=== PATIENT | female | born 1995 | race Caucasian/White ===

== ENCOUNTER 2017-08-12 18:46 | Emergency (ER) | payer OTHER ==
[~2017-08-12 18:46] MED LIST: ISOVUE-370 76%-LOCM 1 ML ONE
[2017-08-12 19:26] LABS: Bilirubin Negative (Negative); Blood, Urine Negative (Negative); Clarity CLEAR (Clear); Glucose, Urine (Dipstick) Negative (Negative); Leukocyte Negative (Negative); Nitrite Negative (Negative); Protein, Urine (Dipstick) Negative (Neg-Trace); Urobilinogen 0.2 mg/dL (0.2-1.0); pH, Urine 6.5 (5.0-9.0)
[2017-08-12 19:31] LABS: Pregnancy Test - Urine (BHCG) Negative (Negative); Pregu Control Background? CLEAR/WHITE (CLR/WHITE); Pregu Control Bar Appear? YES (CONTROL BAR)
[2017-08-12 19:35] LABS: #Basophils 0.1 thou/uL (0.0-0.2); #Eosinphils 0.2 thou/uL (0.0-0.7); #Lymphocytes 4.1 thou/uL (1.20-3.40); #Monocytes 0.7 thou/uL (0.11-0.59); #Neutrophils 8.5 thou/uL (1.40-6.50); %Basophils 0.5 % (0.0-1.0); %Eosinophils 1.7 % (0.0-10.0); %Lymphocytes 29.9 % (21.0-51.0); %Monocytes 5.1 % (0.0-10.0); %Neutrophils 62.9 % (42.0-75.0); Hemoglobin 14.9 g/dL (12.0-16.0); Mean Corpuscular HGB CONC 33.8 g/dL (32.0-36.0); Mean Corpuscular Hemoglobin 28.8 pg (27.0-31.0); Mean Corpuscular Volume 85.4 fl (81.0-99.0); Mean Platelet Volume 7.2 fL (7.4-10.4); Platelet Count 341 thou/uL (130-400); RBC Distribution Width 12.6 % (11.5-14.5); Red Blood Cell (RBC) Count 5.18 mill/uL (4.20-5.40); White Blood Cell (WBC) Count 13.6 thou/uL (4.8-10.8)
[2017-08-12] MEDS ORDERED: Ketorolac Tromethamine 30 MG/ML VIAL ONE (19:38)
[2017-08-12] MEDS ORDERED: Morphine 4 MG/ML VIAL ONE (19:38)
[2017-08-12] MEDS ORDERED: Ondansetron ODT 4 MG TAB ONE (19:40)
[2017-08-12 19:57] LABS: ALT (SGPT) 20 U/L (8-55); AST (SGOT) 16 U/L (5-34); Albumin 4.8 g/dL (3.5-5.0); Alkaline Phosphatase 93 U/L (40-150); Anion Gap 15 mmol/L (10-20); BUN (Urea Nitrogen) 13 mg/dL (7.0-18.7); Bilirubin, Total 0.3 mg/dL (0.2-1.2); Calc. Creatinine Clearance 0 mL/min (70-130); Calcium 10.4 mg/dL (7.8-10.44); Carbon Dioxide 23 mmol/L (22-29); Chloride 102 mmol/L (98-107); Estimated GFR-MDRD Greater than 90; Globulin 3.9 g/dL (2.4-3.5); Glucose 94 mg/dL (70-105); Potassium 3.9 mmol/L (3.5-5.1); Protein, Total 8.7 g/dL (6.0-8.3); Sodium 136 mmol/L (136-145)
[2017-08-12] MEDS ORDERED: HYDROcodone/Acetaminophen 10/325 mg Tablet ONE (21:06)
--- NOTE | 2017-08-12 21:50 | CT ---
CT ABDOMEN AND PELVIS: 08/12/2017 HISTORY: Abdominal pain. Right lower quadrant pain. Nausea and vomiting. COMPARISON: None. TECHNIQUE: Serial axial CT imaging obtained at 5 mm intervals, from the lung bases through the pubic symphysis, with IV contrast. Coronal reformatted imaging obtained. FINDINGS: The lack of oral contrast limits assessment of the bowel. The imaged lung bases are unremarkable. No free intraperitoneal air. No significant free fluid seen in the abdomen or pelvis. The liver, spleen, gallbladder, pancreas, adrenal glands, and kidneys are unremarkable. The appendix cannot be visualized on this examination. No right lower quadrant inflammatory change i s seen. There are scattered mildly prominent lymph nodes throughout the mesentery. No enlarged nodes by size criteria. No acute osseous abnormality. Vascular structures appear patent. IMPRESSION: Nonvisualization of the appendix. No right lower quadrant inflammatory change, evidence of bowel obs truction, or evidence of free intraperitoneal air. POS: KRYSTYNA
--- NOTE | 2017-08-12 23:03 | ULT ---
PELVIC ULTRASOUND: 08/12/2017 HISTORY: Pelvic pain. COMPARISON: None. TECHNIQUE: Multiplanar bazzi-scale sonographic imaging of the pelvis obtained with transabdominal and endovaginal imaging. The ovaries are assessed with color-flow and spectral analysis. FINDINGS: The uterus measures 8.1 x 4.2 x 5.2 cm and is retroflexed. The endometrium measures 8 mm, within nor mal limits. Trace free fluid is noted in the pelvic cul-de-sac. No uterine mass identified. The ri ght ovary measures 3.5 x 3.0 x 2.6 cm, and the left ovary measures 2.8 x 1.6 x 2.6 cm. The ovaries d emonstrate normal blood flow without evidence for mass. IMPRESSION: Small volume free fluid in the pelvis; otherwise, unremarkable. POS: MITCH
== END 2017-08-12 23:01 | disposition home or self-care (01) ==
LOC: ERS 18:46
DX: R10.31 Right lower quadrant pain (principal); F17.210 Nicotine dependence, cigarettes, uncomplicated; F41.9 Anxiety disorder, unspecified; Z79.84 Long term (current) use of oral hypoglycemic drugs
CPT/HCPCS: 74177; 76856; 80053; 81003; 81025; 85025; 96374; 96375; J1885; J2270; Q0162

== ENCOUNTER 2017-10-10 17:42 | Emergency (ER) | payer OTHER ==
[2017-10-10 18:23] LABS: #Eosinphils 0.2 thou/uL (0.0-0.7); #Lymphocytes 3.3 thou/uL (1.20-3.40); #Monocytes 0.5 thou/uL (0.11-0.59); #Neutrophils 5.6 thou/uL (1.40-6.50); %Basophils 0.4 % (0.0-1.0); %Eosinophils 2.2 % (0.0-10.0); %Lymphocytes 34.5 % (21.0-51.0); %Monocytes 5.3 % (0.0-10.0); %Neutrophils 57.5 % (42.0-75.0); Hemoglobin 13.3 g/dL (12.0-16.0); Mean Corpuscular Volume 85.2 fL (78.0-98.0); Platelet Count 284 thou/uL (130-400); RBC Distribution Width 12.5 % (11.5-14.5); White Blood Cell (WBC) Count 9.7 thou/uL (4.8-10.8)
[2017-10-10 18:46] LABS: ALT (SGPT) 16 U/L (8-55); AST (SGOT) 15 U/L (5-34); Albumin 4.2 g/dL (3.5-5.0); Alkaline Phosphatase 76 U/L (40-150); Anion Gap 12 mmol/L (10-20); BUN (Urea Nitrogen) 12 mg/dL (7.0-18.7); Bilirubin, Total 0.5 mg/dL (0.2-1.2); Calc. Creatinine Clearance 0 mL/min (70-130); Calcium 9.6 mg/dL (7.8-10.44); Carbon Dioxide 26 mmol/L (22-29); Chloride 104 mmol/L (98-107); Estimated GFR-MDRD Greater than 90; Globulin 3.3 g/dL (2.4-3.5); Glucose 100 mg/dL (70-105); Potassium 4.1 mmol/L (3.5-5.1); Protein, Total 7.5 g/dL (6.0-8.3); Sodium 138 mmol/L (136-145)
[2017-10-10] MEDS ORDERED: Metoclopramide HCl 10 MG/2 ML VIAL ONE (19:18)
[2017-10-10] MEDS ORDERED: diphenhydrAMINE 50 MG/ML VIAL ONE (19:18)
[2017-10-10] MEDS ORDERED: Ketorolac Tromethamine 30 MG/ML VIAL ONE (19:18)
[2017-10-10] MEDS ORDERED: methylPREDNISolone Sod Succ/PF 125 MG/2 ML VIAL ONE (19:18)
== END 2017-10-10 21:41 | disposition home or self-care (01) ==
LOC: ERS 17:42
DX: R51 Headache (principal); F41.9 Anxiety disorder, unspecified; F17.210 Nicotine dependence, cigarettes, uncomplicated
CPT/HCPCS: 36415; 80053; 85025; 96365; 96375; J1200; J1885; J2765; J2930

== ENCOUNTER 2018-01-01 06:32 | Day surgery (SDC) | payer OTHER ==
[2017-12-31 11:54] VITALS: BMI 39.6
[2018-01-01] MEDS ORDERED: Fentanyl 250 MCG/5 ML VIAL ONE ×2 (08:32→10:19)
[2018-01-01] MEDS ORDERED: Fentanyl 100 MCG/2 ML VIAL ONE (09:13)
[2018-01-01] MEDS ORDERED: Dexamethasone 20 MG/5 ML VIAL ONE (09:55)
[2018-01-01] MEDS ORDERED: PROPOFOL 200 MG/20 ML VIAL ONE ×2 (09:55→09:56)
[2018-01-01] MEDS ORDERED: Lidocaine 1% PF 5 ML VIAL ONE ×2 (09:55→09:56)
[2018-01-01] MEDS ORDERED: Ondansetron HCl/PF 4 MG/2 ML Vial ONE (09:55)
[2018-01-01] MEDS ORDERED: Glycopyrrolate 0.2 MG/ML 5 ML SYRINGE ONE (09:56)
[2018-01-01] MEDS ORDERED: Lidocaine 2% PF Inj 2 ML VIAL ONE (10:19)
[2018-01-01] MEDS ORDERED: PROPOFOL 40 ML ONE (10:19)
[2018-01-01] MEDS ORDERED: Propofol 1,000 MG/100 ML VIAL IV ONE (10:36)
[2018-01-01] MEDS ORDERED: Albuterol Sulfate HFA (OR ONLY) ONE (10:47)
[2018-01-01] MEDS ORDERED: Hydrocodone-Acetamin 15 ML UDCUP ONE (12:35)
--- NOTE | 2018-01-01 22:31 | OP ---
DATE OF PROCEDURE: 01/01/2018 PREOPERATIVE DIAGNOSES: 1. Chronic adenotonsillitis. 2. Adenotonsillar hypertrophy. POSTOPERATIVE DIAGNOSES: 1. Chronic adenotonsillitis. 2. Adenotonsillar hypertrophy. PROCEDURE: Tonsillectomy and adenoidectomy. SURGEON: Kyle Mendez M.D. ESTIMATED BLOOD LOSS: 50 mL. COMPLICATIONS: Post-tonsillectomy hemorrhage. ANESTHESIA: GETA. PROCEDURE IN DETAIL: After consent was obtained, the patient was identified, brought to the operating room, and placed on the operating table in the supine position. General endotracheal anesthesia and intravenous access was obtained and we proceeded with positioning the patient for oropharyngeal surge ry. Oropharyngeal exposure was obtained with a Amara-Dom mouth gag after a head drape was placed an d secured with a towel clip. The Amara-Dom mouth gag was then suspended from the Hyatt tray and [place] humberto elevation was achieved with a red rubber catheter. The right tonsil was addressed first. We used a curved Allis to grasp the tonsil and retract it medially as an anterior pillar incision was made. The retrotonsillar fascial plane was then established and blunt dissection was performed with the suc tion cautery. Blood vessels were anticipated, identified, and cauterized as they were encountered. Ul timately, dissection was carried to the posterior tonsillar pillar mucosa which was incised hemostati chioma, as well as the base of tongue connection. The tonsil was then passed off as a specimen and ble eding points within the tonsillar bed were cauterized under direct visualization. We subsequently tur neeta our attention to the contralateral side, where using a similar technique, a near identical proced ure was performed. Again, the tonsil was grasped and retracted medially with a curved Allis. The retr otonsillar fascial plane was established and while the anterior pillar was retracted medially, the he mostatic blunt dissection of the tonsil with a suction cautery was performed with blood vessels antic ipated, identified, and cauterized as they were encountered. Again, dissection continued to the base of tongue and posterior tonsillar pillar mucosa which was incised in a hemostatic fashion. The tonsi llar beds were then carefully inspected and bleeding points were identified and cauterized with a suc tion cautery. After this portion of the procedure, hemostasis was completely obtained. Under direct m irror visualization, we visualized the adenoid pad. Under direct mirror visualization, we removed the bulk of the adenoid tissue with the adenoid curette. We then packed the nasopharynx for an appropria te period of time with Shravan-Synephrine saturated tonsillar sponges. After a period of observation, we removed the pack. Under indirect mirror visualization, we obtained hemostasis and vaporization of res idual adenoid tissue with electrocautery. The patient's oral cavity was copiously irrigated with iced saline and subsequently suctioned. After completion of the procedure, the nasal cavity and oropharyn x were irrigated and suctioned as were the gastric contents. The patient was then awakened and transf erred to the recovery room where the patient remained in stable condition prior to discharge to [facility]. Following this, the patient was taken to the Recovery Room where she had some coughing episodes. The re was noted to be fresh red blood in her mouth following this. There was noted to be small ooze not ed from the left tonsil bed. The patient was then taken back to the recovery room and underwent rapi d sequence intubation. Following this, the blood clot from the left tonsil area was irrigated and a suction Bovie was used to recoagulate this area and create hemostasis. Following this, Monsel soluti on was applied to the tonsil bed and was then irrigated with cool saline. Orogastric tube was placed and gastric contents were suctioned. The patient tolerated the procedure well and was taken to [facility] in stable condition.
== END 2018-01-01 13:17 | disposition home or self-care (01) ==
LOC: SDC 06:32
PROVIDERS: ATTEND Otolaryngology Plastic Surgery within the Head & Neck
PROC: 0CTPXZZ Resection of Tonsils, External Approach (ICD-10-PCS; principal; 2018-01-01)
PROC: 0CTQXZZ Resection of Adenoids, External Approach (ICD-10-PCS; principal; 2018-01-01)
DX: J35.03 Chronic tonsillitis and adenoiditis (principal); J95.831 Postprocedural hemorrhage of a respiratory system organ or structure following other procedure; J01.91 Acute recurrent sinusitis, unspecified; E11.9 Type 2 diabetes mellitus without complications; G43.909 Migraine, unspecified, not intractable, without status migrainosus; E28.2 Polycystic ovarian syndrome; Z79.84 Long term (current) use of oral hypoglycemic drugs; Z79.899 Other long term (current) drug therapy; Z88.5 Allergy status to narcotic agent; Z91.018 Allergy to other foods
CPT/HCPCS: 36415; 85014; 88304; 96374; J1100; J2001; J2405; J2704; J3010